=== PATIENT | female | born 2005 | race Caucasian/White ===

== ENCOUNTER 2023-07-01 20:19 | Emergency (ER) | payer OTHER, SELFPAY ==
[2023-07-01 20:33] VITALS: BP 113/60; BP 96/72; PULSE 65; PULSE 86; RESP 20; TEMP 36.7; O2SAT 97; BMI 30.2
--- NOTE | 2023-07-01 20:46 | PC.NURSE ---
this rn assumed care of pt from ems. per pt request this rn attempted to contact pt shirley gayle unable to reach pt notified, pt requested this rn attempt calling pt shirley father EL. this rn able to reach El, states family will be coming to [facility] shortly
== END 2023-07-01 23:12 | disposition left against medical advice (07) ==
PROVIDERS: Emergency Provider Emergency Medicine
DX: R56.9 Unspecified convulsions (principal)
CPT/HCPCS: 99281; 99284

== ENCOUNTER 2023-07-06 11:41 | Outpatient (REF) | payer MEDICAID, SELFPAY | END 2023-07-06 11:42 | disposition home or self-care (01) | LOC: HO.HHCL 11:41 | PROVIDERS: Visit Provider Emergency Medicine | DX: M54.50 Low back pain, unspecified (principal); M54.6 Pain in thoracic spine; G89.29 Other chronic pain; R21 Rash and other nonspecific skin eruption | CPT/HCPCS: 36415; 86038; 86431; 86592; 86617; 86618 ==

== ENCOUNTER 2023-10-06 20:04 | Emergency (ER) | payer MEDICAID, SELFPAY ==
--- NOTE | 2023-10-06 | ECG_ITS ---
Test Reason : SEIZURE Blood Pressure : / mmHG Vent. Rate : 055 BPM Atrial Rate : 055 BPM P-R Int : 132 ms QRS Dur : 072 ms QT Int : 396 ms P-R-T Axes : 009 025 024 degrees QTc Int : 378 ms Sinus bradycardia with sinus arrhythmia Low voltage QRS Cannot rule out Anterior infarct , age undetermined Abnormal ECG No previous ECGs available Referred By: Generic ED Physician Electronically Signed By:HAMLET VIZCAINO MD
[2023-10-06 20:10] VITALS: BP 121/72; PULSE 59; O2SAT 98
[2023-10-06 20:13] VITALS: BP 136/79; PULSE 57; RESP 15; TEMP 37.1; O2SAT 97; BMI 30.7
[2023-10-06 21:03] LABS: MANUAL DIFF FLAG NO
[2023-10-06 21:04] LABS: Basophils Absolute Auto 0.1 X10*3/uL (0.0-0.2); Basophils Percent Auto 0.6 % (0-2); Eosinophils Absolute Auto 0.1 X10*3/uL (0.0-0.4); Eosinophils Percent Auto 0.9 % (0-4); Hematocrit 40.5 % (37.0-47.0); Hemoglobin 13.9 g/dl (12.0-16.0); Imm Gran Abs Auto 0.02 X10*3/uL (0.00-0.03); Imm Gran Pct Auto 0.2 % (0.0-0.4); Lymphocytes Absolute Auto 3.6 X10*3/uL (1.2-4.9); Lymphocytes Percent Auto 33.6 % (20-40); Mean Corpuscular HGB Conc 34.3 g/dl (31.0-35.0); Mean Corpuscular Hemoglobin 32.3 pg (27.0-33.0); Monocytes Percent Auto 9.2 % (2-11); Neutrophils Absolute Auto 5.9 x10*3/uL (2.0-8.3); Neutrophils Percent Auto 55.5 % (45-73); Platelet Count 335 X10*3/uL (160-400); Red Blood Count 4.31 X10*6/uL (4.20-5.50); Red Cell Distribution Width 11.4 % (11.0-16.0); White Blood Count 10.6 X10*3/uL (4.8-10.8)
--- NOTE | 2023-10-06 21:16 | ED_ITS ---
HPI - Seizure General Chief Complaint: Seizure Stated Complaint: seizure Time Seen by Provider: 10/06/23 21:12 Source: patient Mode of arrival: ambulatory Limitations: no limitations History of Present Illness HPI Narrative: Patient from [place] moved to [facility] lately with history of anxiety with history of nonepileptic seizures/psychogenic seizures for longtime on any medication had detailed workup last year which was negative for epileptic activity today while at restaurant similar episode EMS gave her Versed 5 mg prior to arrival patient does have similar episodes of seizures almost every other day she remembers the episode at this time patient is back to baseline no tongue bite no injury Related Data Previous Rx's ?Medication ?Instructions ?Recorded lorazepam 1 mg tablet (Ativan) 1 mg PO DAILY PRN anxiety #20 tabs 10/06/23 Allergies Allergy/AdvReac Type Severity Reaction Status Date / Time adhesive Allergy Rash Verified 10/06/23 20:15 lamotrigine Allergy Rash Verified 10/06/23 20:15 Review of Systems 2 Review of Systems: Yes all other systems are reviewed and are negative [facility] Past Medical History Medical History (Updated 10/06/23 @ 22:02 by Carlos Bunn MD) Anxiety Psychogenic nonepileptic seizure Social History Social History Alcohol intake: current Alcohol intake frequency: a few times a week Smoked in Last 30 Days: Yes Use of substances other than those prescribed or required for medical reasons: Yes Substance Use Type: Marijuana Advance Directives: No Advance Directives Information Provided: No Patient : No Physical Exam 2 Vital Signs: Vital Signs: Last Vital Signs Temp 98.8 F 10/06/23 20:13 Pulse 57 10/06/23 20:13 Resp 15 10/06/23 20:13 BP 136/79 10/06/23 20:13 Pulse Ox 97 10/06/23 20:13 O2 Del Method Room Air 10/06/23 20:13 BMI result Body Mass Index 30.7 Appearance: Alert. Oriented X3. No acute distress. Eyes: PERRLA, No Nystagmus ENT: Pharynx normal. Oral Mucosa moist no tongue bite Neck: Normal inspection. Neck supple. CVS: Normal heart rate and rhythm. Pulses normal. Respiratory: No respiratory distress. Equal air entry bilateral, no wheezing/rales/rhonchi Abdomen: Soft and nontender. Bowel sounds are present, no mass palpable, no CVA tenderness Skin: Skin warm and dry. Normal skin color. Normal skin turgor. Extremities: No lower extremity edema. No calf tenderness Neuro: Oriented X 3. No motor deficit. No sensory deficit.No cerebellar signs , cranial nerves II-XII intact Medical Decision Making Medical Decision Making [facility] Narrative: Patient nonepileptic psychogenic seizure for long duration advised to follow with neurologist and take Ativan for sleep and relaxation Differential Diagnosis Differential Diagnoses: The differential diagnosis associated with the presentation includes Conversion disorder /psychogenic seizure Lab Data [facility] Lab Attestation statement: I reviewed the patient's lab results. 10/06/23 20:58 10/06/23 20:58 Labs: Lab Results 10/06/23 Range/Units 20:58 WBC 10.6 (4.8-10.8) X10*3/uL RBC 4.31 (4.20-5.50) X10*6/uL Hgb 13.9 (12.0-16.0) g/dl Hct 40.5 (37.0-47.0) % MCV 94.0 (80.0-98.0) fL MCH 32.3 (27.0-33.0) pg MCHC 34.3 (31.0-35.0) g/dl RDW 11.4 (11.0-16.0) % Plt Count 335 (160-400) X10*3/uL MPV 10.0 (9.4-12.3) fL Immature Gran % (Auto) 0.2 (0.0-0.4) % Neut % (Auto) 55.5 (45-73) % Lymph % (Auto) 33.6 (20-40) % [place] % (Auto) 9.2 (2-11) % Eos % (Auto) 0.9 (0-4) % Baso % (Auto) 0.6 (0-2) % Lymph # (Auto) 3.6 (1.2-4.9) X10*3/uL [place] # (Auto) 1.0 (0.1-1.2) X10*3/uL Eos # (Auto) 0.1 (0.0-0.4) X10*3/uL Baso # (Auto) 0.1 (0.0-0.2) X10*3/uL Abs Immat Gran (auto) 0.02 (0.00-0.03) X10*3/uL Absolute Neuts (auto) 5.9 (2.0-8.3) x10*3/uL Absolute Nucleated RBC 0.000 (0.0-0.012) X10*3/uL Nucleated RBC % (auto) 0.0 (0.0-0.2) /100WBC Sodium 142 (135-145) mmol/L Potassium 4.5 (3.3-5.1) mmol/L Chloride 109 H (96-108) mmol/L Carbon Dioxide 22 (22-29) mmol/L Anion Gap 16 (12-20) BUN 4 L (9-16) mg/dL Creatinine 0.69 (0.5-1.4) mg/dL Estim Creat Clear Calc 119.3 Estimated GFR > 60 Random Glucose 84 (60-115) mg/dL Calcium 10.6 H (8.4-10.2) mg/dL Total Bilirubin 0.6 (0.0-1.0) mg/dL AST 19 (5-31) U/L ALT 12 (0-31) U/L Alkaline Phosphatase 62 (39-117) U/L Total Protein 7.9 (6.5-8.0) g/dL Albumin 4.5 (3.5-5.0) g/dL Discharge Plan Discharge Clinical Impression: Psychogenic nonepileptic seizure Patient Disposition: Home, Self-Care Instructions: Recurrent Seizures in Adults (ED), Anxiety (ED) Additional Instructions: Your have psychogenic secondary to anxiety induced seizure Follow-up with your PCP/ psychiatrist Ativan for anxiety and sleep Prescriptions: New lorazepam [Ativan] 1 mg tablet 1 mg PO DAILY PRN (Reason: anxiety) Qty: 20 0RF Print Language: Syriac
[2023-10-06 21:24] LABS: Alanine Aminotransferase 12 U/L (0-31); Albumin Level 4.5 g/dL (3.5-5.0); Alkaline Phosphatase 62 U/L (39-117); Anion Gap 16 (12-20); Aspartate Amino Transferase 19 U/L (5-31); Bilirubin Total 0.6 mg/dL (0.0-1.0); Blood Urea Nitrogen 4 mg/dL (9-16); Calcium 10.6 mg/dL (8.4-10.2); Carbon Dioxide 22 mmol/L (22-29); Chloride 109 mmol/L (96-108); Creatinine Clr Calc Pharmacy 119.3; Estimated Glomerular Filt Rate > 60; Glucose Random 84 mg/dL (60-115); Potassium 4.5 mmol/L (3.3-5.1); Sodium 142 mmol/L (135-145); Total Protein 7.9 g/dL (6.5-8.0)
--- NOTE | 2023-10-06 21:43 | PC.NURSE ---
late entry- pt vikkia from working at [employer], reports she felt a seizure coming on and reports lying down on the floor. co-workers witnessed pt have one hour long seizure. upon ems arrival pt had witnessed seizure by ems, ems gave pt 5mg versed, pt seizing stopped and pt became post ictal. upon arrival pt alert and oriented, reports no pain. 20G in the right ac placed by ems. seizure precautions in place.
[2023-10-06] MEDS: Ibuprofen 600 MG TABLET PO (22:15)
--- NOTE | 2023-10-06 22:32 | PC.NURSE ---
pt significant other to provider pt ride home.
[2023-10-06 22:46] VITALS: BP 111/65; PULSE 53; RESP 17; TEMP 36.6; O2SAT 97
== END 2023-10-06 22:47 | disposition home or self-care (01) ==
PROVIDERS: Emergency Provider Internal Medicine
DX: R56.9 Unspecified convulsions (principal); R00.1 Bradycardia, unspecified; Z79.899 Other long term (current) drug therapy
CPT/HCPCS: 36415; 80053; 85025; 93005; 99283; 99284

== ENCOUNTER → 2023-10-06 20:19 | Outpatient (BNV) | payer MEDICAID, SELFPAY | PROVIDERS: Emergency Provider Internal Medicine; Visit Provider Internal Medicine Cardiovascular Disease | DX: R94.31 Abnormal electrocardiogram [ECG] [EKG] (principal) | CPT/HCPCS: 93010 ==

== ENCOUNTER 2023-11-03 01:34 | Emergency (ER) | payer OTHER, SELFPAY ==
[2023-11-03 01:59] VITALS: BP 135/85; PULSE 99; RESP 16; TEMP 36.2; O2SAT 99; BMI 30.3
[2023-11-03 03:18] LABS: MANUAL DIFF FLAG NO
[2023-11-03 03:19] LABS: Basophils Percent Auto 0.4 % (0-2); Eosinophils Percent Auto 0.4 % (0-4); Hematocrit 39.6 % (37.0-47.0); Hemoglobin 13.9 g/dl (12.0-16.0); Imm Gran Abs Auto 0.01 X10*3/uL (0.00-0.03); Imm Gran Pct Auto 0.2 % (0.0-0.4); Lymphocytes Absolute Auto 1.9 X10*3/uL (1.2-4.9); Mean Corpuscular HGB Conc 35.1 g/dl (31.0-35.0); Mean Corpuscular Hemoglobin 32.1 pg (27.0-33.0); Mean Corpuscular Volume 91.5 fL (80.0-98.0); Mean Platelet Volume 9.8 fL (9.4-12.3); Monocytes Absolute Auto 0.4 X10*3/uL (0.1-1.2); Monocytes Percent Auto 8.3 % (2-11); Neutrophils Absolute Auto 2.2 x10*3/uL (2.0-8.3); Neutrophils Percent Auto 48.7 % (45-73); Platelet Count 260 X10*3/uL (160-400); Red Blood Count 4.33 X10*6/uL (4.20-5.50); Red Cell Distribution Width 11.3 % (11.0-16.0); White Blood Count 4.6 X10*3/uL (4.8-10.8)
[2023-11-03 03:20] LABS: Appearance Urine Clear; Color Urine Dark Yellow; Glucose Urine UA Negative (Negative); Leukocyte Esterase Urine Trace (Negative); Nitrite Urine Positive (Negative); PH 6.5 (5.0-9.0); UMIC TRIGGER UACC YES; Urine Blood Negative (Negative); Urine Ketones Negative (Negative); Urine Protein Negative (Neg-Trace)
[2023-11-03 03:21] LABS: UPreg QC Valid YES; Urine Pregnancy NEGATIVE (NEGATIVE)
[2023-11-03 03:28] LABS: Bacteria Urine None Seen (None Seen); Hyaline Casts Urine 0-2 /LPF (0-2); RBC Urine 0-2 /HPF (0-2); UACC Culture Trigger YES; WBC Urine 0-5 /HPF (0-5)
[2023-11-03 03:32] LABS: Amphetamine Screen Urine Not Detected (Not Detect); Barbiturates, Urine Not Detected (Not Detect); Benzodiazepines Screen Urine Not Detected (Not Detect); Buprenorphine Scr Not Detected (Not Detect); Cannabinoid Screen Urine POSITIVE (Not Detect); Cocaine Screen Urine Not Detected (Not Detect); Fentanyl, urine Not Detected (Not Detect); Methadone Screen, Urine Not Detected (Not Detect); Opiate Screen Urine Not Detected (Not Detect); Oxycodone Screen Urine Not Detected (Not Detect); Phencyclidine Screen Urine Not Detected (Not Detect)
[2023-11-03 03:44] LABS: Acetaminophen LAB < 3 mcg/mL (<30); Salicylate < 5.0 mg/dL (15-30)
[2023-11-03 03:45] LABS: Alanine Aminotransferase 34 U/L (0-31); Albumin Level 4.4 g/dL (3.5-5.0); Alkaline Phosphatase 81 U/L (39-117); Anion Gap 16 (12-20); Aspartate Amino Transferase 28 U/L (5-31); Bilirubin Total 0.5 mg/dL (0.0-1.0); Blood Urea Nitrogen 6 mg/dL (9-16); Carbon Dioxide 22 mmol/L (22-29); Chloride 106 mmol/L (96-108); Creatinine Clr Calc Pharmacy 109.1; Estimated Glomerular Filt Rate > 60; Ethanol < 10 mg/dL; Glucose Random 89 mg/dL (60-115); Potassium 3.7 mmol/L (3.3-5.1); Sodium 140 mmol/L (135-145)
--- NOTE | 2023-11-03 07:15 | PC.NURSE ---
PT IS SLEEPING RESP EVEN AND UNLABORED. WILL CONTINUE TO MONITOR.
--- NOTE | 2023-11-03 08:20 | ED.GENADULT ---
HPI - General Adult General Chief complaint: Psychiatric Symptoms Stated complaint: mental health check up? Time Seen by Provider: 11/03/23 06:41 Source: patient Mode of arrival: ambulatory Limitations: no limitations History of Present Illness HPI narrative: This is a 18-year-old female presenting to the emergency department with suicidal ideation with plan to cut himself, patient has not yet tried to do this however has been thinking about it. Patient denies visual, auditory and tactile hallucinations. Patient has been on psych meds in the past however not taking them. Patient has had previous psychiatric admissions. Patient is not taking any meds currently. Patient denies medical complaints. Related Data Previous Rx's ?Medication ?Instructions ?Recorded lorazepam 1 mg tablet (Ativan) 1 mg PO DAILY PRN anxiety #20 tabs 10/06/23 Allergies Allergy/AdvReac Type Severity Reaction Status Date / Time adhesive Allergy Rash Verified 11/03/23 02:00 lamotrigine Allergy Rash Verified 11/03/23 02:00 Review of Systems Review of Systems: Constitutional : No Weight loss, No Fever, No Chills, No Fatigue, No Malaise ENT/Mouth : No sore throat, No Rhinorrhea Eyes: No Eye Pain, No Swelling, No Redness Cardiovascular : No Chest Pain, No SOB, No Dyspnea on Exertion, No Orthopnea, No Edema, No Palpitations Respiratory : No Cough, No Sputum, No Wheezing Gastrointestinal : No Nausea, No Vomiting, No Diarrhea, No Constipation, No abdominal Pain, No Hematochezia, No Melena Genitourinary : No Dysuria, No Urinary Frequency, No Hematuria, Musculoskeletal : No joint pain, No Myalgias, No Joint Swelling Skin : No Skin Lesions, No rash Neuro : No Weakness, No Numbness, No Dizziness, No Headache Psych : No Anxiety/Panic, No Depression, + SI All other systems reviewed and are negative Yes all other systems are reviewed and are negative [facility] Past Medical History Attestation statement: The following information was validated with the patient. Source: old records reviewed and nursing notes reviewed Medical History Anxiety Psychogenic nonepileptic seizure Social History Social History Alcohol intake: current Alcohol intake frequency: a few times a week Substance Use Type: Marijuana Advance Directives: No Advance Directives Information Provided: No Physical Exam ED Vital Signs: Vital Signs - 24 hr 11/03/23 01:59 Temperature 97.1 F Pulse Rate 99 Respiratory Rate 16 Blood Pressure 135/85 Pulse Oximetry 99 Oxygen Delivery Method Room Air BMI result Body Mass Index 30.3 vss Appearance: Alert.? Oriented X3.? No acute distress.? Head: Normocephalic, atraumatic, no step-offs or deformities Eyes: Pupils equal, round and reactive to light.? CVS: Normal heart rate and rhythm.? Pulses normal.? Respiratory: No respiratory distress.? Breath sounds normal.? Abdomen: Soft and nontender.? Skin: Skin warm and dry.? Normal skin color.? Normal skin turgor.? Extremities: No lower extremity edema.? No calf ttp. 5/5 strength to bilateral upper and lower extremities Back: No midline tenderness, no C-spine tenderness, full range of motion, no CVA tenderness bilaterally Neuro: Oriented X 3.? No motor deficit.? No sensory deficit. CN 2-12 intact Course Reevaluation(s) Reevaluation #1: CBC with leukopenia, nonspecific. Chemistry no acute findings requiring intervention. UA with positive nitrates and leukocyte esterases concerning for possible UTI, urine negative. Will treat for UTI. UA positive for marijuana. Negative salicylates, acetaminophen ethanol. Time: 09:11 Medical Decision Making Medical Decision Making [facility] Narrative: 08 18-year-old female presents with suicidal ideation with plan to cut self. No medical complaints Physical exam benign History and physical exam concerning for suicidal ideation with likely depression. Other differentials include schizophrenia, bipolar disorder. Will rule out metabolic derangements although unlikely. Plan medical clearance evaluation by care team Differential Diagnosis Differential Diagnoses: The differential diagnosis associated with the presentation includes History and physical exam concerning for suicidal ideation with likely depression. Other differentials include schizophrenia, bipolar disorder. Will rule out metabolic derangements although unlikely. Admission/Observation Consideration of admission/observation: Escalation of care including admission/observation considered likely Lab Data [facility] Lab Attestation statement: I reviewed the patient's lab results. 11/03/23 03:10 11/03/23 03:10 Labs: Lab Results 11/03/23 11/03/23 11/03/23 Range/Units 02:57 03:00 03:10 WBC 4.6 L (4.8-10.8) X10*3/uL RBC 4.33 (4.20-5.50) X10*6/uL Hgb 13.9 (12.0-16.0) g/dl Hct 39.6 (37.0-47.0) % MCV 91.5 (80.0-98.0) fL MCH 32.1 (27.0-33.0) pg MCHC 35.1 H (31.0-35.0) g/dl RDW 11.3 (11.0-16.0) % Plt Count 260 (160-400) X10*3/uL MPV 9.8 (9.4-12.3) fL Immature Gran % (Auto) 0.2 (0.0-0.4) % Neut % (Auto) 48.7 (45-73) % Lymph % (Auto) 42.0 H (20-40) % [place] % (Auto) 8.3 (2-11) % Eos % (Auto) 0.4 (0-4) % Baso % (Auto) 0.4 (0-2) % Lymph # (Auto) 1.9 (1.2-4.9) X10*3/uL [place] # (Auto) 0.4 (0.1-1.2) X10*3/uL Eos # (Auto) 0.0 (0.0-0.4) X10*3/uL Baso # (Auto) 0.0 (0.0-0.2) X10*3/uL Abs Immat Gran (auto) 0.01 (0.00-0.03) X10*3/uL Absolute Neuts (auto) 2.2 (2.0-8.3) x10*3/uL Absolute Nucleated RBC 0.000 (0.0-0.012) X10*3/uL Nucleated RBC % (auto) 0.0 (0.0-0.2) /100WBC Sodium 140 (135-145) mmol/L Potassium 3.7 (3.3-5.1) mmol/L Chloride 106 (96-108) mmol/L Carbon Dioxide 22 (22-29) mmol/L Anion Gap 16 (12-20) BUN 6 L (9-16) mg/dL Creatinine 0.75 (0.5-1.4) mg/dL Estim Creat Clear Calc 109.1 Estimated GFR > 60 Random Glucose 89 (60-115) mg/dL Calcium 10.0 (8.4-10.2) mg/dL Total Bilirubin 0.5 (0.0-1.0) mg/dL AST 28 (5-31) U/L ALT 34 H (0-31) U/L Alkaline Phosphatase 81 (39-117) U/L Total Protein 8.0 (6.5-8.0) g/dL Albumin 4.4 (3.5-5.0) g/dL Urine Color Dark Yellow Urine Appearance Clear Urine pH 6.5 (5.0-9.0) Ur Specific [place] 1.010 (1.005-1.025) Urine Protein Negative (Neg-Trace) mg/dL Urine Glucose (UA) Negative (Negative) mg/dL Urine Ketones Negative (Negative) mg/dL Urine Blood Negative (Negative) Urine Nitrite Positive H (Negative) Ur Leukocyte Esterase Trace H (Negative) Urine RBC 0-2 (0-2) /HPF Urine WBC 0-5 (0-5) /HPF Ur Squamous Epith Cells 3-5 (0-2) /HPF Urine Bacteria None Seen (None Seen) Hyaline Casts 0-2 (0-2) /LPF Urine Test NEGATIVE (NEGATIVE) Salicylates < 5.0 L (15-30) mg/dL Urine Opiates Screen Not Detected (Not Detect) Ur Buprenorphine Scrn Not Detected (Not Detect) ng/mL Ur Oxycodone Screen Not Detected (Not Detect) ng/mL Urine Methadone Screen Not Detected (Not Detect) ng/mL Urine Fentanyl Screen Not Detected (Not Detect) Acetaminophen < 3 (<30) mcg/mL Ur Barbiturates Screen Not Detected (Not Detect) Ur Phencyclidine Scrn Not Detected (Not Detect) Ur Amphetamines Screen Not Detected (Not Detect) U Benzodiazepines Scrn Not Detected (Not Detect) Urine Cocaine Screen Not Detected (Not Detect) U Marijuana (THC) Screen POSITIVE H (Not Detect) Ethyl Alcohol < 10 mg/dL External Record Review External record reviewed: Outpatient record Chronic Conditions Patient?s care impacted by: Other (abnxiety, depression, nonepileptic seizure) Critical Care Time Critical Care Time Critical Care Time: No Discharge Plan Discharge Clinical Impression: Depression, Suicidal ideation, UTI (urinary tract infection) Patient Disposition: Still a Patient Prescriptions: No Action lorazepam [Ativan] 1 mg tablet 1 mg PO DAILY PRN (Reason: anxiety) Qty: 20 0RF Interventions: [place]-Suicide Risk Severity Scale Last Done: 11/03/23 05:02 Print Language: Swedish
[2023-11-03 09:40] VITALS: BP 108/69; PULSE 59; TEMP 36.4; O2SAT 97
[2023-11-03] MEDS: Nitrofurantoin Monohyd/M-Cryst 100 MG CAPSULE PO (10:12)
--- NOTE | 2023-11-03 10:19 | PC.NURSE ---
PT A/O X 4 NO SOB/ENRIQUE NOTED. SPEAKS IN FULL SENTENCES. PT STATES 6/10 LOWER BACK PAIN. PT ALSO STATES +SI. PT IS IN THE ROOM CALM/C0-OP. WILL CONTINUE TO MONITOR.
--- NOTE | 2023-11-03 15:29 | MHC.CARE ---
Jennifer @[facility] called to accept this pt for today 11/03/23. ETA is [facility] and the accepting provider is Dr. Katina Carmona. The address is [address] [place] [address]. The number for nurse to nurse is [phone]. CARE team was notified to complete the section 12 for transport. Pod staff was notified of placement.
[2023-11-03] MEDS: Acetaminophen 325 MG TABLET 975 MG PO (16:11)
--- NOTE | 2023-11-03 16:44 | PC.NURSE ---
this RN resumed care of pt at 1700. pt continues to rest in room comfortably in no apparent distress. pt aware of plan of care moving forward at this time. report given to COBY Cantu at [facility]. pt aware of transportation ETA. medication administered per provider order. no sob/wob noted. respirations even and unlabored. plan of care ongoing.
[2023-11-03 19:55] VITALS: BP 122/78; PULSE 80; RESP 16; TEMP 36.6; O2SAT 98
== END 2023-11-03 19:59 | disposition short-term general hospital (02) ==
PROVIDERS: Emergency Medicine Emergency Medical Services; Emergency Provider Emergency Medicine
DX: F33.1 Major depressive disorder, recurrent, moderate (principal); R45.851 Suicidal ideations; N39.0 Urinary tract infection, site not specified; Z79.899 Other long term (current) drug therapy
CPT/HCPCS: 36415; 80053; 80143; 80179; 80307; 81001; 81025; 85025; 87086; 99285; S9485

== ENCOUNTER 2024-12-01 17:18 | Emergency (ER) | payer OTHER, SELFPAY ==
--- NOTE | ~2024-12-01 | XR_ITS ---
CLINICAL HISTORY: chest pain 2 view chest x-ray Comparison: None Findings: No consolidation. No pleural fluid. Heart size normal. No acute fracture. Impression: Lungs are clear. This document has been electronically signed by: Amado Petersen MD on 12/01/2024 18:44:35
[2024-12-01 17:31] VITALS: BP 119/85; PULSE 84; RESP 16; TEMP 36.6; O2SAT 98; BMI 37.5
--- NOTE | 2024-12-01 17:31 | ED_ITS ---
HPI - General Adult General Chief complaint: General Medical Stated complaint: psoriasis, joint pain Time Seen by Provider: 12/01/24 19:23 Source: patient Mode of arrival: ambulatory Limitations: no limitations History of Present Illness ED Provider: Ivan Montanez DO HPI narrative: 18-year-old female to male transition with reported history of psoriasis and nonepileptic seizures presents to the ED for multiple symptoms including concerns for acid reflux, abdominal pain, diffuse joint pain, dizziness, headaches, back pain and he has sensitivity. Patient states he has been experiencing homelessness and has not seen a provider in a long time. 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 His symptoms have been ongoing for months and the acid reflux only occurs in the morning, the joint pain and itchy psoriasis rash has been constant. His last course of steroids was 1 or 2 months ago. He has no fevers, abdominal pain, or any additional symptoms today. no homicidal or suicidal ideations. Related Data Previous Rx's ?Medication ?Instructions ?Recorded lorazepam 1 mg tablet (Ativan) 1 mg PO DAILY PRN anxiety #20 tabs 10/06/23 prednisone 20 mg tablet 40 mg (2 x 20 mg) PO DAILY #14 tabs 12/01/24 Allergies Allergy/AdvReac Type Severity Reaction Status Date / Time adhesive Allergy Rash Verified 12/01/24 17:41 lamotrigine Allergy Rash Verified 12/01/24 17:41 Review of Systems 2 Review of Systems: Yes all other systems are reviewed and are negative PMFSH Past Medical History Medical History Anxiety Psychogenic nonepileptic seizure Social History Social History Alcohol intake: current Alcohol intake frequency: a few times a week Substance Use Type: Marijuana Physical Exam ED Vital Signs: Vital Signs - 24 hr 12/01/24 17:31 Temperature 98 F Pulse Rate 84 Respiratory Rate 16 Blood Pressure 119/85 Pulse Oximetry 98 Oxygen Delivery Method Room Air BMI result Body Mass Index 37.5 Constitutional: Alert, oriented, speaking in full sentences HEENT: Normocephalic, atraumatic. Moist mucous membranes, no mucosal involvement of rash Eyes: PERRL, EOMI Neck: Supple, nontender Chest: No chest wall tenderness Respiratory: Lungs clear to auscultation, no increased work of breathing Cardio: Regular rate and rhythm, no murmur GI: Soft, nondistended, nontender Back: Normal range of motion, nontender Skin: Scaly rash noted about the arms on the extensor regions. No open discharge. Old, completely healed lacerations of the volar aspect of the right arm Neuro: Alert and oriented to person, place and time, moves all 4 extremities, no focal deficits Extremities: No swelling or tenderness, full range of motion Psych: Calm, alert and cooperative, appropriate behavior Course Course Course Narrative: RME performed by Farida Johns PA-C. Patient is a 19 year old assigned female at , now male, presenting to the emergency department with multiple complaints. Patient states that he has not been able to go to a doctor for awhile because of homelessness. Patient states that he is having bad acid reflux at night to the point where it wakes him up and makes him drool, psoriatic skin painful, aches and pains in joints, chest tightness / palpitations, steroids not helping with the psoriasis as much as used to, lightheadedness / faintness during exertion, headache / migraines every other day depending on activity, frequent abdominal pain, chronic body pain, pinching pain in spine limiting mobility, labored / achy breathing, calcified lymph nodes in chest - concerned for cancer given familial history, fatigue, tensing of muscles secondary of pain - requiring active thought to stop the clenching, limbs go numb quickly, would be more physically active if not in chronic pain, difficulty losing weight, struggling to work 4 hour shift, heat sensitivity, itchy / irritated skin on shoulders and chest. Last seizure October 31. History of psychogenic non- epileptic seizures. Detailed physical exam and review of systems are deferred to the industrial paramedic. EKG, labs, imaging, and swabs ordered. Patient placed back in the waiting room pending room availability and results. Medical Decision Making Medical Decision Making [facility] Narrative: patient presenting with multiple symptoms, mainly concerned about chronic itchy rash and joint pains. There are no signs of arthritis today. There are no signs of dangerous skin etiology such as SJS, necrotizing fasciitis, or severe allergic reaction. Exam is benign. vital signs unremarkable. Comprehensive lab work, x-ray imaging of the chest and ECG are unremarkable. I discussed with the patient the possible benefit of another course of steroids as well as the importance of following up with the primary care provider and freelance court stenographer. Provided contact information and return precautions. Patient agrees with plan. Admission/Observation Consideration of admission/observation: Escalation of care including admission/observation considered Lab Data [facility] Lab Attestation statement: I reviewed the patient's lab results. 12/01/24 17:49 12/01/24 17:49 Labs: Lab Results 12/01/24 Range/Units 17:49 WBC 9.5 (4.8-10.8) X10*3/uL RBC 4.42 (4.20-5.50) X10*6/uL Hgb 14.1 (12.0-16.0) g/dl Hct 41.2 (37.0-47.0) % MCV 93.2 (80.0-98.0) fL MCH 31.9 (27.0-33.0) pg MCHC 34.2 (31.0-35.0) g/dl RDW 12.2 (11.0-16.0) % Plt Count 350 D (160-400) X10*3/uL MPV 9.8 (9.4-12.3) fL Immature Gran % (Auto) 0.3 (0.0-0.4) % Neut % (Auto) 65.0 (45-73) % Lymph % (Auto) 27.4 (20-40) % [place] % (Auto) 5.6 (2-11) % Eos % (Auto) 1.4 (0-4) % Baso % (Auto) 0.3 (0-2) % Lymph # (Auto) 2.6 (1.2-4.9) X10*3/uL [place] # (Auto) 0.5 (0.1-1.2) X10*3/uL Eos # (Auto) 0.1 (0.0-0.4) X10*3/uL Baso # (Auto) 0.0 (0.0-0.2) X10*3/uL Abs Immat Gran (auto) 0.03 (0.00-0.03) X10*3/uL Absolute Neuts (auto) 6.2 (2.0-8.3) x10*3/uL Absolute Nucleated RBC 0.000 (0.0-0.012) X10*3/uL Nucleated RBC % (auto) 0.0 (0.0-0.2) /100WBC PT 10.5 L (10.9-12.4) SEC INR 0.9 (0.9-1.1) Sodium 140 (135-145) mmol/L Potassium 4.3 (3.3-5.1) mmol/L Chloride 108 (96-108) mmol/L Carbon Dioxide 24 (22-29) mmol/L Anion Gap 12 (12-20) BUN 12 (9-16) mg/dL Creatinine 0.68 (0.5-1.4) mg/dL Estim Creat Clear Calc 133.6 Estimated GFR > 60 Random Glucose 87 (60-115) mg/dL Calcium 9.2 D (8.4-10.2) mg/dL Magnesium 2.1 (1.6-2.6) mg/dL Total Bilirubin 0.4 (0.0-1.0) mg/dL AST 31 (5-31) U/L ALT 43 H (0-31) U/L Alkaline Phosphatase 78 (39-117) U/L Troponin I High Sens < 2.7 (<3.5-17.0) ng/L Total Protein 7.3 (6.5-8.0) g/dL Albumin 4.3 (3.5-5.0) g/dL Beta HCG, Quant < 2 mIU/mL Influenza Type A (PCR) NEGATIVE (Negative) Influenza Type B (PCR) NEGATIVE (Negative) RSV RNA Qual (PCR) NEGATIVE (Negative) SARS-CoV-2 RNA (RT-PCR) NEGATIVE (Negative) Independent Interpretation I performed an independent interpretation of an: EKG and Plain X-Ray ( Chest x- ray per my independent interpretation shows no acute cardiopulmonary abnormalities.) Interpretation: Normal sinus rhythm at 64 beats per minute, normal axis intervals, no diagnostic ST or T-wave abnormalities, normal variant T-wave inversion in lead 3, compared to previous dated 10/06/2023, there are no significant changes. Discharge Plan Discharge Clinical Impression: Psoriasis Patient Disposition: Home, Self-Care Additional Instructions: 7 day course of steroids prescribed. All the primary care provider for establishing care. If you are unable to get in with them, look up other primary care providers in the area to make an appointment. Due to your psoriasis and chronic symptoms, you may benefit from evaluation by a freelance court stenographer. [facility] [address] [place] [address] [id number], [place] [id number] Phone:? Prescriptions: New prednisone 20 mg tablet 40 mg PO DAILY Qty: 14 0RF No Action lorazepam [Ativan] 1 mg tablet 1 mg PO DAILY PRN (Reason: anxiety) Qty: 20 0RF Referrals: [facility] [place] [Provider Group] [facility] [place] [facility] [Provider Group] Stand Alone Forms: Work/School Release Print Language: Kenyan
--- NOTE | 2024-12-01 17:39 | ECG_ITS ---
Test Reason : SOB, weakness Blood Pressure : */* mmHG Vent. Rate : 64 BPM Atrial Rate : 64 BPM P-R Int : 146 ms QRS Dur : 64 ms QT Int : 396 ms P-R-T Axes : 2 0 17 degrees QTcB Int : 408 ms Normal sinus rhythm Possible Anterior infarct (cited on or before 06-Oct-2023) Abnormal ECG When compared with ECG of 06-Oct-2023 20:19, No significant change was found Referred By: Farida Johns Electronically Signed By: HAMLET VIZCAINO MD
[2024-12-01 18:02] LABS: MANUAL DIFF FLAG NO
[2024-12-01 18:04] LABS: Basophils Percent Auto 0.3 % (0-2); Eosinophils Absolute Auto 0.1 X10*3/uL (0.0-0.4); Eosinophils Percent Auto 1.4 % (0-4); Hematocrit 41.2 % (37.0-47.0); Hemoglobin 14.1 g/dl (12.0-16.0); Imm Gran Abs Auto 0.03 X10*3/uL (0.00-0.03); Imm Gran Pct Auto 0.3 % (0.0-0.4); Lymphocytes Absolute Auto 2.6 X10*3/uL (1.2-4.9); Lymphocytes Percent Auto 27.4 % (20-40); Mean Corpuscular HGB Conc 34.2 g/dl (31.0-35.0); Mean Corpuscular Hemoglobin 31.9 pg (27.0-33.0); Mean Corpuscular Volume 93.2 fL (80.0-98.0); Mean Platelet Volume 9.8 fL (9.4-12.3); Monocytes Absolute Auto 0.5 X10*3/uL (0.1-1.2); Monocytes Percent Auto 5.6 % (2-11); Neutrophils Absolute Auto 6.2 x10*3/uL (2.0-8.3); Platelet Count 350 X10*3/uL (160-400); Red Blood Count 4.42 X10*6/uL (4.20-5.50); Red Cell Distribution Width 12.2 % (11.0-16.0); White Blood Count 9.5 X10*3/uL (4.8-10.8)
[2024-12-01 18:10] LABS: INTERNATIONAL NORM RATIO 0.9 (0.9-1.1); Prothrombin Time 10.5 SEC (10.9-12.4)
[2024-12-01 18:17] LABS: Alanine Aminotransferase 43 U/L (0-31); Albumin Level 4.3 g/dL (3.5-5.0); Alkaline Phosphatase 78 U/L (39-117); Anion Gap 12 (12-20); Aspartate Amino Transferase 31 U/L (5-31); Bilirubin Total 0.4 mg/dL (0.0-1.0); Blood Urea Nitrogen 12 mg/dL (9-16); Calcium 9.2 mg/dL (8.4-10.2); Carbon Dioxide 24 mmol/L (22-29); Chloride 108 mmol/L (96-108); Creatinine Clr Calc Pharmacy 133.6; Estimated Glomerular Filt Rate > 60; Glucose Random 87 mg/dL (60-115); Magnesium 2.1 mg/dL (1.6-2.6); Potassium 4.3 mmol/L (3.3-5.1); Sodium 140 mmol/L (135-145); Total Protein 7.3 g/dL (6.5-8.0)
[2024-12-01 18:25] LABS: HCG Quantitative < 2 mIU/mL; Troponin-I High Sensitivity < 2.7 ng/L (<3.5-17.0)
[2024-12-01 18:41] LABS: Influenza A PCR NEGATIVE (Negative); Influenza B PCR NEGATIVE (Negative); Resp Syncy Virus RNA Qual PCR NEGATIVE (Negative); SARS COV2 PCR INHOUSE NEGATIVE (Negative)
[2024-12-01 19:25] VITALS: BP 105/61; PULSE 52; RESP 16; TEMP 36.7; O2SAT 99
[2024-12-01] MEDS: predniSONE 20 MG TABLET 40 MG PO (20:13)
[2024-12-01 21:09] VITALS: BP 105/61; PULSE 52; RESP 16; TEMP 36.7; O2SAT 99
== END 2024-12-01 20:20 | disposition home or self-care (01) ==
PROVIDERS: Physician Assistant Medical; Emergency Provider Emergency Medicine
DX: L40.9 Psoriasis, unspecified (principal); F41.9 Anxiety disorder, unspecified; R21 Rash and other nonspecific skin eruption; Z59.00 Homelessness unspecified; Z03.818 Encounter for observation for suspected exposure to other biological agents ruled out; Z79.899 Other long term (current) drug therapy
CPT/HCPCS: 0241U; 36415; 71046; 80053; 83735; 84484; 84702; 85025; 85610; 93005; 99283; 99284

== ENCOUNTER → 2024-12-01 17:39 | Outpatient (BNV) | payer MEDICAID, SELFPAY | PROVIDERS: Visit Provider Radiology Diagnostic Radiology | DX: R07.9 Chest pain, unspecified (principal) | CPT/HCPCS: 71046 ==

== ENCOUNTER → 2024-12-01 17:39 | Outpatient (BNV) | payer MEDICAID, SELFPAY | PROVIDERS: Emergency Provider Emergency Medicine; Visit Provider Internal Medicine Cardiovascular Disease | DX: R94.31 Abnormal electrocardiogram [ECG] [EKG] (principal); R06.02 Shortness of breath; R53.1 Weakness | CPT/HCPCS: 93010 ==

== ENCOUNTER 2025-05-14 17:51 | Emergency (ER) | payer MEDICAID, SELFPAY ==
[2025-05-14 18:12] VITALS: BP 134/100; PULSE 74; RESP 18; TEMP 36.2; O2SAT 97
--- NOTE | 2025-05-14 18:22 | ECG_ITS ---
Test Reason : CP Blood Pressure : */* mmHG Vent. Rate : 68 BPM Atrial Rate : 68 BPM P-R Int : 148 ms QRS Dur : 68 ms QT Int : 366 ms P-R-T Axes : 23 19 15 degrees QTcB Int : 389 ms Sinus rhythm with marked sinus arrhythmia Cannot rule out Anterior infarct (cited on or before 06-Oct-2023) Abnormal ECG When compared with ECG of 01-Dec-2024 17:53, No significant change was found Referred By: Generic ED Physician Electronically Signed By: HAMLET VIZCAINO MD
[2025-05-14 18:54] LABS: MANUAL DIFF FLAG NO
[2025-05-14 18:56] LABS: Hematocrit 42.1 % (37.0-47.0); Hemoglobin 14.4 g/dl (12.0-16.0); Imm Gran Abs Auto 0.03 X10*3/uL (0.00-0.03); Imm Gran Pct Auto 0.3 % (0.0-0.4); Lymphocytes Absolute Auto 1.9 X10*3/uL (1.2-4.9); Mean Corpuscular HGB Conc 34.2 g/dl (31.0-35.0); Mean Corpuscular Hemoglobin 32.1 pg (27.0-33.0); Mean Corpuscular Volume 94.0 fL (80.0-98.0); NRBC Abs Auto 0.000 X10*3/uL (0.0-0.012); NRBC Pct Auto 0.0 /100WBC (0.0-0.2); Platelet Count 321 X10*3/uL (160-400); Red Blood Count 4.48 X10*6/uL (4.20-5.50); White Blood Count 9.6 X10*3/uL (4.8-10.8)
[2025-05-14 19:09] LABS: Alanine Aminotransferase 23 U/L (0-31); Albumin Level 4.9 g/dL (3.5-5.0); Alkaline Phosphatase 73 U/L (39-117); Anion Gap 15 (12-20); Aspartate Amino Transferase 22 U/L (5-31); Blood Urea Nitrogen 8 mg/dL (9-16); Calcium 9.7 mg/dL (8.4-10.2); Carbon Dioxide 22 mmol/L (22-29); Chloride 107 mmol/L (96-108); Creatinine Clr Calc Pharmacy 113.7; Estimated Glomerular Filt Rate > 60; Lipase 16 U/L (8-78); Potassium 3.8 mmol/L (3.3-5.1); Sodium 140 mmol/L (135-145); Total Protein 7.8 g/dL (6.5-8.0)
[2025-05-14 19:20] LABS: Troponin-I High Sensitivity < 2.7 ng/L (<3.5-17.0)
--- NOTE | 2025-05-14 21:46 | PC.NURSE ---
Pt states she has been unable to eat for 4 weeks, stating I cant keep anything down . Pt also endorses episodes of heart palpitations and bradycardia Pt also states shes lost 15-20lbs as well. Pt is very well appearing during triage.
--- OUTSIDE RECORDS SUMMARY | 2025-05-14 22:07 | XMS_ITS | Clinical Summary ---
Author Organization [facility] Address [address] [place] [address] Phone Care Team Providers Care Loan Documents Closer Name Role Phone Physician, No Pcp Primary Care Provider Unavaila ble Allergies Active Allergy Reactions Criticality Noted Date Comments Adhesive 10/10/2024 Lamotrigine 10/10/2024 Medications No known medications Active Problems No known active problems Medical History Medical History Date Comments Seizure ([facility] V24, [facility] V28) Social History Tobacco Use Types Packs/Day Years Used Date Smoking Tobacco: Some Days Cigarettes Smokeless Tobacco: Current Tobacco Cessation:Ready to Q uit: Not Asked; Counseling Given: Not Answered Alcohol Use Standard Drinks/Week Comments Yes 0 (1 standard drink = 0.6 oz pur e alcohol) Comments No Sex and Gender Information Value Date Recorded Sex Assigned at Female 10/11/2024 1:20 AM EDT Legal Sex Female 7:53 PM EDT Gender Identity Female 10/11/2024 1:20 AM EDT Sexual Orientation Choose not to disclose 2024 1:20 AM EDT Obstetrics History Last Filed Vital Signs Vital Sign Reading Time Taken Comments Blood Pressure 115/65 10/11/2024 2:22 AM EDT Pulse 65 10/11/2024 2:22 AM EDT Temperature 36.7 C (98.1 F) 10/11/2024 2:22 AM EDT Respiratory Rate 15 10/11/2024 2:22 AM EDT Oxygen Saturation 100% 10/11/2024 2:22 AM EDT Inhaled Oxygen Concentration - - Weight 86.2 kg (190 lb) 10/10/2024 8:01 PM EDT Height 154.9 cm (5' 1 ) 10/10/2024 8:01 PM EDT Body Mass Index 35.9 10/10/2024 8:01 PM EDT Plan of Treatment Health Maintenance Due Date Last Done Comments Gonorrhea/Chlamydia Screening 2003 HPV Vaccines (1 - 3-dose series) 2018 Meningococcal B Vaccine (1 o f 2 - Standard) 2019 DTaP,Tdap,and Td Vaccines (1 - Tdap) 2022 Hepatitis B Vaccines (1 of 3 - 19+ 3-dose series) 2022 Pneumococcal Vaccine: Pediat rics (0 to 5 Years) and At-Risk Patients (6 to 49 Years) (1 of 2 - PCV) 2022 Depression Screening 07/04/2024 Cervical Cancer Screening: P ap Smear 2024 Annual Well Child Visit (3-2 1 years old) 10/11/2024 Cholesterol Screening (Lipid Panel) 10/11/2024 HIV Screening 10/11/2024 Hepatitis C Screening 10/11/2024 Social Influencers of Health Screening 10/11/2024 COVID-19 Vaccine (1 - 2023-2 5 season) 2025 Influenza Vaccine (#1) 2025 RSV Immunization Adult Patie nts (1 - 1-dose 75+ series) 2078 HIB Vaccines Aged Out No longer eligi ble based on patient's age to complete this topic Hepatitis A Vaccines Aged Out No long er eligible based on patient's age to complete this topic IPV Vaccines Aged Out No longer eligi ble based on patient's age to complete this topic MMR Vaccines Aged Out No longer eligi ble based on patient's age to complete this topic Meningococcal ACWY Vaccine Aged Out N o longer eligible based on patient's age to complete this topic RSV Immunization Patients Un julian 20 months Aged Out No longer eligible b ased on patient's age to complete this topic Varicella Vaccines Aged Out No longer eligible based on patient's age to complete this topic Insurance [place] Care Teams Loan Documents Closer Relationship Specialty Start Date End Date Physician, No Pcp PCP - General 10/11/24
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
[2025-05-15 00:23] VITALS: BP 113/71; PULSE 56; RESP 16; TEMP 36.4; O2SAT 98
--- NOTE | 2025-05-15 01:05 | PC.NURSE ---
Care assumed around 0000. Pt speaking with Care Team. He is found in his stretcher sitting upright, awake and alert,without distress noted. He offers no complaints at this time, denying the presence of pain/nausea. The pt states that he only vomits after/when he eats solid foods. RN provided pt with sandwich and ice water per request and MD approval. Pt given emesis bag as a precautionary measure. RN will continue to monitor.
[2025-05-15 02:24] VITALS: BP 113/71; PULSE 56; RESP 16; TEMP 36.4; O2SAT 98
--- NOTE | 2025-05-15 21:01 | MHC.CARE ---
RAD Team completed PHP and [facility] referrals for this pt. Will follow up tomorrow.
== END 2025-05-15 02:20 | disposition home or self-care (01) ==
PROVIDERS: Emergency Provider Emergency Medicine
DX: R11.2 Nausea with vomiting, unspecified (principal); F32.A Depression, unspecified; L40.9 Psoriasis, unspecified; R10.9 Unspecified abdominal pain; R94.31 Abnormal electrocardiogram [ECG] [EKG]
CPT/HCPCS: 36415; 80048; 80076; 83690; 84484; 85025; 93005; 99284; S9485

== ENCOUNTER → 2025-05-14 18:22 | Outpatient (BNV) | payer MEDICAID, SELFPAY | PROVIDERS: Emergency Provider Emergency Medicine; Visit Provider Internal Medicine Cardiovascular Disease | DX: R94.31 Abnormal electrocardiogram [ECG] [EKG] (principal); R07.9 Chest pain, unspecified | CPT/HCPCS: 93010 ==